=== PATIENT | female | born 1945 | race Hispanic/Latino ===

== ENCOUNTER 2017-08-05 10:48 | Emergency (ER) | payer MEDICARE ==
[2017-08-05] MEDS ORDERED: NACL 0.9% 1000 ML 1,000 ML IV ONE (11:40)
[2017-08-05] MEDS ORDERED: ZOFRAN IV ONE (11:41)
--- NOTE | 2017-08-05 11:47 | Emergency Department Report ---
<FRANCISCO DOOLEY - Last Filed: 08/05/17 17:41> ED Syncope HPI - General Chief Complaint: Syncope Stated Complaint: WEAKNESS Time Seen by Provider: 08/05/17 11:35 - Related Data Allergies/Adverse Reactions: Allergies prednisone Allergy (Verified 08/05/17 11:39) Unknown Home Medications: Ambulatory Orders Nitrofurantoin Monohyd/M-Cryst [Macrobid 100 mg Capsule] 100 mg PO BID #14 capsule 08/05/17 Ondansetron [Zofran Odt] 4 mg PO Q8HR PRN #14 tab.rapdis 08/05/17 ED Review of Systems ROS: Stated complaint: WEAKNESS Other details as noted in HPI ED Past Medical Hx - Medications Home Medications: Home Medications Medication Instructions Recorded Confirmed Last Taken Type Nitrofurantoin Monohyd/M-Cryst 100 mg PO BID #14 capsule 08/05/17 Unknown Rx [Macrobid 100 mg Capsule] Ondansetron [Zofran Odt] 4 mg PO Q8HR PRN #14 tab.rapdis 08/05/17 Unknown Rx ED Course Vital Signs 08/05/17 08/05/17 11:14 16:35 Temperature 98.0 F Pulse Rate 60 86 Blood Pressure 136/62 Blood Pressure 132/64 [Left] O2 Sat by Pulse 100 Oximetry ED Medical Decision Making - Lab Data Result diagrams: 08/05/17 11:47 08/05/17 11:47 - Medical Decision Making Followed up on CT angiogram result as per Dr. Lemos's request. No PE identified Patient will be discharged on antibiotics as per Dr. Lemos's recommendation Patient apparently is taking Cipro otic drops and Dr. Lemos prescribed Cipro oral tablets. I will change the antibiotic to Macrobid for UTI Critical care attestation.: If time is entered above; I have spent that time in minutes in the direct care of this critically ill patient, excluding procedure time. ED Disposition Clinical Impression: Syncope, Elevated d-dimer, UTI (urinary tract infection), Vomiting Disposition: DC-01 TO HOME OR SELFCARE Is pt being admited?: No Condition: Stable Instructions: Urinary Tract Infection in Women (ED), Syncope (ED) Prescriptions: Nitrofurantoin Monohyd/M-Cryst [Macrobid 100 mg Capsule] 100 mg PO BID #14 capsule Ondansetron [Zofran Odt] 4 mg PO Q8HR PRN #14 tab.rapdis PRN Reason: Nausea And Vomiting Referrals: DIMAS IGNACIO MD [Other] - 3-5 Days Time of Disposition: 17:41 <JENNIFER LEMOSCornel - Last Filed: 08/06/17 15:18> ED Syncope HPI - General Source: patient - History of Present Illness Initial Comments: Patient is 72 years old female with recent eye surgery, patient had lens implant yesterday by her machine sorter. She went to her machine sorter office today for removal of dressing. While patient was sitting she starts having some nausea and vomiting and syncopal episode that is completely resolved by the time she came to the ER by EMS. Patient also stated that she had mild headache. Patient denied any chest pain, shortness of breath. No confusion, weakness, numbness or tingling sensation. No bowel or bladder incontinence. Timing/Prior Episodes: remote history Precipitating Factors: Positive: none Current Symptoms: back to normal, headache, lightheadedness, nausea. denies: blurred vision, chest pain, diaphoresis, dizziness, injury, loss of bladder control, loss of bowel control, motionless ED Review of Systems Comment: All other systems reviewed and negative Constitutional: denies: fever Eyes: denies: eye pain Respiratory: denies: cough, orthopnea, shortness of breath, SOB with exertion, SOB at rest, wheezing Cardiovascular: denies: chest pain, palpitations, dyspnea on exertion, orthopnea , edema, syncope Gastrointestinal: nausea, vomiting. denies: abdominal pain, diarrhea, constipation, hematemesis, melena, hematochezia Genitourinary: denies: urgency, dysuria, frequency, hematuria, discharge, abnormal menses Musculoskeletal: denies: back pain Neurological: denies: headache, weakness, numbness, paresthesias ED Past Medical Hx - Past Medical History Previous Medical History?: No Additional medical history: syncope - Surgical History Past Surgical History?: Yes Additional Surgical History: right occular implant - Social History Smoking Status: Never Smoker Substance Use Type: None ED Physical Exam - General Limitations: No Limitations General appearance: alert, in no apparent distress - Head Head exam: Present: atraumatic, normocephalic, normal inspection - Eye Eye exam: Present: normal appearance, PERRL - ENT ENT exam: Present: normal exam, normal orophraynx, mucous membranes moist - Neck Neck exam: Present: normal inspection, full ROM. Absent: tenderness, meningismus, lymphadenopathy, thyromegaly - Respiratory Respiratory exam: Present: normal lung sounds bilaterally. Absent: respiratory distress, wheezes, rales, rhonchi, stridor, chest wall tenderness, accessory muscle use, decreased breath sounds, prolonged expiratory - Cardiovascular Cardiovascular Exam: Present: regular rate, normal rhythm, normal heart sounds - GI/Abdominal GI/Abdominal exam: Present: soft, normal bowel sounds. Absent: distended, tenderness, guarding, rebound, rigid, organomegaly, mass, bruit, pulsatile mass - Extremities Exam Extremities exam: Present: normal inspection, full ROM, normal capillary refill. Absent: pedal edema, calf tenderness - Back Exam Back exam: Present: normal inspection, full ROM. Absent: tenderness, CVA tenderness (R), CVA tenderness (L) - Neurological Exam Neurological exam: Present: alert, oriented X3, CN II-XII intact, normal gait - Skin Skin exam: Present: warm, intact, normal color. Absent: cyanosis ED Medical Decision Making - Lab Data Result diagrams: 08/05/17 11:47 08/05/17 11:47 ED Disposition Is pt being admited?: No
[2017-08-05 12:15] LABS: Basophils % (Auto) 0.4 % (0.0-1.8); Eosinophils # (Auto) 0.1 K/mm3 (0.0-0.4); Eosinophils % (Auto) 1.7 % (0.0-4.3); Hematocrit 40.1 % (30.3-42.9); Hemoglobin 13.4 gm/dl (10.1-14.3); Lymphocytes # (Auto) 0.9 K/mm3 (1.2-5.4); Lymphocytes % (Auto) 13.3 % (13.4-35.0); Mean Corpuscular HGB Conc 33 % (30-34); Mean Corpuscular Hemoglobin 31 pg (28-32); Mean Corpuscular Volume 94 fl (79-97); Monocytes # (Auto) 0.4 K/mm3 (0.0-0.8); Monocytes % (Auto) 5.7 % (0.0-7.3); Platelet Count 178 K/mm3 (140-440); Red Blood Count 4.29 M/mm3 (3.65-5.03); Red Cell Distribution Width 14.4 % (13.2-15.2)
--- NOTE | 2017-08-05 12:26 | Cat Scan Report ---
CT HEAD WITHOUT CONTRAST: HISTORY: Syncope. TECHNIQUE: Sequential 2.5mm CT images. COMPARISON: none. FINDINGS: Cerebral Parenchyma: Within normal limits. Cerebellum: Within normal limits. Brainstem: Within normal limits. Ventricles: Normal. Sella: Normal. Extra-axial spaces: Normal. Basal Cisterns: Normal. Intracranial Hemorrhage: None. Midline Shift: None. Calvarium: Normal. Sinuses: Normal. Mastoid Air Cells: Normal. Visualized Orbits: Normal. IMPRESSION: Cranial CT scan within normal limits.
[2017-08-05 12:31] LABS: Alanine Aminotransferase 17 units/L (7-56); Albumin 3.8 g/dL (3.9-5); BUN/Creatinine Ratio 30; Blood Urea Nitrogen 18 mg/dL (7-17); Calcium 8.8 mg/dL (8.4-10.2); Hemolysis Index 8
[2017-08-05 13:50] LABS: Bilirubin,Urine NEG (Negative); Blood,Urine NEG (Negative); Color,Urine Yellow (Yellow); Mucus,Urine FEW /HPF; Nitrite,Urine NEG (Negative); Protein,Urine <15 mg/dL mg/dL (Negative); Urobilinogen,Urine < 2.0 mg/dL (<2.0)
[2017-08-05] MEDS ORDERED: ROCEPHIN/NS 1 GM/50 ML 1 GM/50 ML BAG IV ONE (14:53)
[2017-08-05] MEDS ORDERED: cefTRIAXone 2 GM in NACL 0.9% 20 ML IV ONE (15:45)
[2017-08-05] MEDS ORDERED: NACL ONE (16:14)
[2017-08-05 16:35] VITALS: BP 132/64
--- NOTE | 2017-08-05 16:48 | Cat Scan Report ---
FINAL REPORT EXAM: CT ANGIO CHEST HISTORY: SYNCOPE and elevated D-dimer TECHNIQUE: CTA of chest with IV contrast. Coronal and sagittal and MIP reconstructed images provided. PRIORS: None currently available. FINDINGS: Linear scarring or discoid subsegmental atelectasis in both lung bases. No pneumothorax. No distinct consolidation. No effusion. Mild aortic atherosclerotic disease. No aneurysm or dissection. Main pulmonary artery is unremarkable. No pulmonary embolus. Heart size is within normal limits. No pericardial effusion. Coronary artery disease noted. Axillary regions are unremarkable. No hilar mediastinal mass or adenopathy. Images of the esophagus are unremarkable. Nonspecific low-density lesions are present within the liver. No enhancement identified. Probable cysts or hemangiomas. Images of the thyroid gland are unremarkable. No suspicious osseous lesions on this limited examination of the skeleton. Metastatic disease better evaluated with bone scan. Degenerative changes are present in the spine. Scoliosis. IMPRESSION: No pulmonary embolus. No aortic aneurysm. No dissection. Linear scarring or discoid subsegmental atelectasis in both lung bases. Several well-defined low-density lesions in the liver. Suspect cysts or hemangiomas.
== END 2017-08-05 18:32 | disposition home or self-care (01) ==
LOC: ED 10:48
DX: R55 Syncope and collapse (principal); N39.0 Urinary tract infection, site not specified; R79.89 Other specified abnormal findings of blood chemistry; Z88.8 Allergy status to other drugs, medicaments and biological substances
CPT/HCPCS: 36415; 70450; 71275; 80053; 81001; 84484; 85025; 85379; 93005; 93010; 96361; 96374; 96375; 99285; J0696; J2405; J7030; Q9967